=== PATIENT | male | born 1970 | race American Indian/Alaskan Native ===

== ENCOUNTER 2022-02-06 18:40 | Emergency (ER) | payer OTHER, MEDICAID ==
[2022-02-06 20:02] VITALS: BP 136/67
[2022-02-07] MEDS ORDERED: IBUPROFEN 800 MG TAB PO ONE (00:52)
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
== END 2022-02-07 03:22 | disposition home or self-care (01) ==
LOC: ED 18:40
DX: M54.2 Cervicalgia (principal); M54.50 Low back pain, unspecified; Z79.899 Other long term (current) drug therapy; V87.7XXA Person injured in collision between other specified motor vehicles (traffic), initial encounter; Y93.89 Activity, other specified; Y92.488 Other paved roadways as the place of occurrence of the external cause; Y99.8 Other external cause status
CPT/HCPCS: 99282